=== PATIENT | male | born 1995 | race Caucasian/White ===

== ENCOUNTER → 2025-06-06 | Outpatient (REF) | payer OTHER | LOC: NM 08:28 | PROVIDERS: ATTEND Internal Medicine Gastroenterology | DX: R10.13 Epigastric pain (principal); R14.0 Abdominal distension (gaseous); K44.9 Diaphragmatic hernia without obstruction or gangrene; K64.8 Other hemorrhoids; A04.8 Other specified bacterial intestinal infections; Z68.33 Body mass index [BMI] 33.0-33.9, adult; Z71.3 Dietary counseling and surveillance; Z87.891 Personal history of nicotine dependence | CPT/HCPCS: 78264; A9541 ==